=== PATIENT | male | born 1955 | race Caucasian/White ===

== ENCOUNTER → 2017-05-04 | Outpatient (CLI) | payer OTHER ==
--- NOTE | 2017-05-04 17:53 | PCVCIMAG ---
APPROVED REPORT Study performed: 05/04/2017 15:03:43 EXAM: Comprehensive 2D, Doppler, and color-flow Echocardiogram Patient Location: Echo lab Status: routine Other Information Study Quality: Adequate Risk Factors: Cardiac Risk Factors: HTN Indications Mitral Valve Disease Cardiomyopathy Mitral valve repair 2D Dimensions LVEF(%): 55.27 (>50%) IVSd: 12.29 (7-11mm) LVDd: 47.51 mm PWd: 10.48 (7-11mm) LVDs: 33.86 (25-40mm) Left Atrium: 44.36 (27-40mm) Aortic Root: 35.06 mm LV Single Plane 4CH: 58.37 % LV Single Plane 2CH: 50.74 %Monte's LVEF: 54.56 % Biplane EF: 54.3 % Volumes Left Atrial Volume (Systole) Single Plane 4CH: 75.30 mLSingle Plane 2CH: 116.15 mL LA ESV Index: 47.00 mL/m2 Aortic Valve AoV Peak Crow.: 1.23 m/s AO Peak Gr.: 6.05 mmHgLVOT Max P.01 mmHg LVOT Max V: 0.87 m/s Mitral Valve MV Peak Gr.: 10.90 mmHg MV Mean Gr.: 3.77 mmHgE/A Ratio: 1.9 MV Decel. Time: 421.15 ms MV E Max Crow.: 1.48 m/s MV A Crow.: 0.78 m/s MV Max Crow.: 1.65 m/s MV Mean Crow.: 0.89 m/s MV VTI: 401.98 mm MV PHT: 104.30 ms MVA (PHT): 2.11 cm2 Pulmonary Valve PV Peak Crow.: 1.04 m/sPV Peak Gr.: 4.29 mmHg Tricuspid Valve TR Peak Crow.: 2.47 m/s TR Peak Gr.: 24.40 mmHg Left Ventricle The left ventricle is normal size. There is normal LV segmental wall motion. There is normal left ventricular wall thickness. Left ventricular systolic function is within lower limits of normal. LVEF is 50-55%. This study is not technically sufficient to allow evaluation of the LV diastolic function. Right Ventricle The right ventricle is normal size. The right ventricular systolic function is normal. Atria Left atrium is moderately dilated. The right atrium size is normal. Aortic Valve The aortic valve is normal in structure. Mild aortic regurgitation is present. There is no aortic valvular stenosis. Mitral Valve Normally functioning mitral valve repair. Mild mitral regurgitation. Minimal mitral stenosis with mildly increased transmitral velocities. Tricuspid Valve The tricuspid valve is normal in structure. Trace tricuspid regurgitation with PAP of 31 mmHg. Pulmonic Valve The pulmonary valve is normal in structure. There is trivial pulmonic valvular regurgitation. Great Vessels The aortic root is normal in size. IVC is normal in size and collapses with >50% inspiration Pericardium There is no pericardial effusion. <Conclusion> The left ventricle is normal size. Left ventricular systolic function is within lower limits of normal. LVEF is 50-55%. This study is not technically sufficient to allow evaluation of the LV diastolic function. The right ventricle is normal size. Left atrium is moderately dilated. Mild aortic regurgitation is present. Mild mitral regurgitation. Normally functioning mitral valve repair. Minimal mitral stenosis with mildly increased transmitral velocities. Trace tricuspid regurgitation with PAP of 31 mmHg. There is no pericardial effusion.
== END | disposition home or self-care (01) ==
LOC: PCVCIMAG 15:13
PROVIDERS: ATTEND Internal Medicine Cardiovascular Disease
DX: I35.1 Nonrheumatic aortic (valve) insufficiency (principal); I34.0 Nonrheumatic mitral (valve) insufficiency; I07.1 Rheumatic tricuspid insufficiency; I37.1 Nonrheumatic pulmonary valve insufficiency; I42.9 Cardiomyopathy, unspecified; I25.10 Atherosclerotic heart disease of native coronary artery without angina pectoris; I10 Essential (primary) hypertension; E78.00 Pure hypercholesterolemia, unspecified; I49.3 Ventricular premature depolarization; Z79.899 Other long term (current) drug therapy
CPT/HCPCS: 80061; 93005; 93306; G0463

== ENCOUNTER → 2018-04-12 | Outpatient (CLI) | payer OTHER | END | disposition home or self-care (01) | LOC: PCVCIMAG 14:20 | DX: I10 Essential (primary) hypertension (principal); R06.02 Shortness of breath; R07.89 Other chest pain; R68.89 Other general symptoms and signs; E78.00 Pure hypercholesterolemia, unspecified; Z98.890 Other specified postprocedural states; Z79.899 Other long term (current) drug therapy | CPT/HCPCS: 80061; 93005; 93325; 93351 ==

== ENCOUNTER → 2018-12-19 | Outpatient (CLI) | payer OTHER ==
--- NOTE | 2018-12-19 14:55 | PCVCIMAG ---
APPROVED REPORT Study performed: 12/19/2018 11:10:23 Exam: Stress Echocardiogram Indication: CAD, Stent,, Hyperlipidemia, Hypertension Patient Location: Echo lab Stress Nurse: Marta Little RN Status: routine Ht: 6 ft 1 in HR: 70 bpm BP: 104/70 mmHg Rhythm: RBBB Medical History Medical History: Hyperlipidemia, HTN, CAD, Stent, Mitral Valve repair Procedure The patient underwent an Exercise Stress Test using the Ricky Protocol. Blood pressure, heart rate, and EKG were monitored. An Echocardiogram was performed by emg technician in four stages in quad fashion. At peak stress, four selected images were obtained and placed side by side with resting images for comparison. Stress Test Details Stress Test: Exercise stress testing was performed using a Ricky protocol. HR Resting HR: 70 bpmMax Heart Rate (APMHR): 155 bpm Max HR Achieved: 166 bpmTarget HR (85% APMHR): 131 bpm % of APMHR: 107 Recovery HR: 80 bpm HR response to stress: Normal HR response to stress BP Resting BP: 104/70 mmHg Max BP: 162/70 mmHg Recovery BP: 132/70 mmHg BP response to stress: Normal blood pressure response to stress. ECG Resting ECG: RBBB Stress ECG: RBBB Recovery ECG: RBBB Recovery Arrhythmia: APC, VPC Clinical Reason for Termination: Maximal effort Exercise duration: 9 min 28 sec Highest Stage Achieved: Stage 3: 3.4 mph at 14% grade. Overall Exercise Capacity for Age: Normal Pre-Stress Echo The resting Echocardiogram showed normal left ventricular contractility with an estimated Ejection Fraction of about 50-55%. Very mild apical, distal septum hypokinesis. Normal wall motion in all segments on baseline images. Post-Stress Echo The stress Echocardiogram showed normal left ventricular contractility with an estimated Ejection Fraction of about 55-60%. Normal augmentation of wall motion in all segments on post stress images. Clinical No clinical or ECG evidence for ischemia. Conclusion Clinical Response: Non-ischemic Exercise Capacity: Average Stress ECG Response: Non-ischemic Stress Echo Images: Non-ischemic The left ventricle is normal in size and wall thickness in both the rest and stress images. Other Information Study Quality: Good <Conclusion> The left ventricle is normal in size and wall thickness in both the rest and stress images.
== END | disposition home or self-care (01) ==
LOC: PCVCIMAG 11:09
PROVIDERS: ATTEND Internal Medicine Cardiovascular Disease
DX: I25.10 Atherosclerotic heart disease of native coronary artery without angina pectoris (principal); I42.9 Cardiomyopathy, unspecified; I10 Essential (primary) hypertension; E78.5 Hyperlipidemia, unspecified; Z98.890 Other specified postprocedural states
CPT/HCPCS: 93325; 93351